=== PATIENT | male | born 1995 | race Caucasian/White ===

== ENCOUNTER 2021-08-30 07:19 | Emergency (ER) | payer SELFPAY ==
[2021-08-30] MEDS ORDERED: IBUPROFEN800 MG PO (07:44)
[2021-08-30] MEDS ORDERED: CLEOCIN HCL300 MG PO (07:44)
== END 2021-08-30 08:02 | disposition home or self-care (01) ==
LOC: ER1 07:19
DX: K08.89 Other specified disorders of teeth and supporting structures (principal); F17.290 Nicotine dependence, other tobacco product, uncomplicated
CPT/HCPCS: 99282